=== PATIENT | male | born 1960 | race Caucasian/White ===

== ENCOUNTER 2016-12-09 07:51 | Emergency (ER) | payer MEDICARE, OTHER ==
[~2016-12-09] VITALS: Ht 188 cm; Wt 90.0 kg
[~2016-12-09 07:51] MED LIST: CONGENTIN; HALDOL; LANOXIN; LITHIUM
[2016-12-09 08:00] VITALS: Ht 188 cm; Wt 90.0 kg
[2016-12-09] MEDS ORDERED: SULF1TAB31 PO (08:13)
[2016-12-09] MEDS ORDERED: CEPH-443 PO (08:13)
--- NOTE | 2016-12-09 08:17 | ERD ---
ER Documentation Chief Complaint Date/Time DATE: 12/09/16 TIME: 08:14 Chief Complaint neck possible abcess HPI 56-year-old male comes in with right-sided neck abscess that started approximately a week ago. He states that it started as a small area and has been increasing in size over the last few days. He has localized pain only. He denies any fevers, chills, neck stiffness. No trouble swallowing or voice changes. ROS All systems reviewed and are negative except as per history of present illness. Medications Home Meds Active Scripts Sulfamethoxazole/Trimethoprim* (Bactrim Ds* Tablet) 1 Each Tablet, 1 TAB PO BID , #14 TAB Prov:AMARJIT OSWALD PA-C 12/09/16 Cephalexin* (Keflex*) 500 Mg Capsule, 500 MG PO QID for 7 Days, CAP Prov:AMARJIT OSWALD PA-C 12/09/16 Reported Medications [Lanoxin] No Conflict Check 10/07/11 [Congentin] No Conflict Check 10/07/11 [Kaanapali] No Conflict Check 10/07/11 [Haldol] No Conflict Check 10/07/11 Allergies Allergies: Coded Allergies: No Known Allergy (Unverified , 05/06/14) PMhx/Soc History of Surgery: No Anesthesia Reaction: No Hx Neurological Disorder: Yes (MENTALLY ILL) Hx Respiratory Disorders: No Hx Cardiac Disorders: Yes (HYPERTENSION) Hx Psychiatric Problems: Yes (DEPRESSION) Hx Miscellaneous Medical Probl: No Hx Alcohol Use: Yes (MONDAY NIGHT) Hx Substance Use: No Hx Tobacco Use: Yes (1 PACK A DAY) Physical Exam Vitals Vital Signs Date Time Temp Pulse Resp B/P Pulse Ox O2 Delivery O2 Flow Rate FiO2 12/09/16 08:00 98.2 77 18 152/99 99 Physical Exam General: Well-developed, well-nourished. The patient appears in no acute distress. HEENT: Head is normocephalic, atraumatic. No scleral icterus. Neck: There is a 2 cm area of fluctuance at the right lateral neck. There is pustular discharge that can be seen beneath the skin. There is no surrounding cellulitis. No other masses or swelling noted. Lungs: Clear to auscultation. Normal air movement. Heart: Regular rate and rhythm. S1 and S2 are normal. No murmurs, gallops, or rubs. Abdomen: Nondistended. Extremities: No clubbing or cyanosis. Moving extremities x 4. No weakness. Neurologic: Alert and oriented 3. No focal deficits. Normal speech and gait. Skin: Normal turgor. No rash or lesions. Results 24 hrs Current Medications Medications (Trade) Dose Ordered Sig/David Route PRN Reason Start Time Stop Time Status Last Admin Dose Admin Lidocaine (Xylocaine 1% (Mdv) 20 ml) 20 ml ONCE ONCE SC 12/09/16 08:30 12/09/16 08:31 Procedures/MDM Abscess Incision and Drainage with irrigation by me: Patient was verbally consented Location: Right lateral neck Anesthesia: Local 1% Lidocaine Technique: Irrigated. Disrupted loculations w/ instrumentation Packing: None Complications: Neurovascularly intact post procedure 48 hour wound check. Scar minimization instructions given. Patient's skin symptoms have stabilized while they have been evaluated in the department and are appropriate for outpatient care and work up. Exam and w/u not consistent w/ sepsis, deep space infection, or foreign body. MDM: 56-year-old male comes in with a right lateral neck abscess that was incised and drained without any complications. It is localized infection, superficial. He denies any signs of deep space infection, meningitis, Vasyl's angina, tumors or other masses that could be potentially life-threatening. He will be given Keflex and Bactrim and was asked to recheck the wound in 2 days. Patient's blood pressure was elevated (>120/80) but appears stable without evidence of hypertension emergency or urgency. The patient was counseled about the risks of hypertension and urged to pursue outpatient monitoring and therapy within a week with their primary care physician. Departure Diagnosis: Primary Impression: Abscess Additional Impression: Encounter for incision and drainage procedure Condition: Good Patient Instructions: Abscess, Incision And Drainage Additional Instructions: Follow up in 2 days in your clinic for wound check. AMARJIT OSWALD PA-C December 09, 2016 08:17
[2016-12-09] MEDS ORDERED: LIDOCAINE 1% (MDV) 20 ML INJ SC ONE (08:30)
== END 2016-12-09 08:53 | disposition home or self-care (01) ==
LOC: FTE 07:51
DX: L02.11 Cutaneous abscess of neck (principal); I10 Essential (primary) hypertension; F17.210 Nicotine dependence, cigarettes, uncomplicated

== ENCOUNTER 2017-02-07 05:58 | Emergency (ER) | END 2017-02-07 09:03 | disposition home or self-care (01) | DX: S02.32XA Fracture of orbital floor, left side, initial encounter for closed fracture (principal); S02.92XA Unspecified fracture of facial bones, initial encounter for closed fracture; I10 Essential (primary) hypertension; F17.210 Nicotine dependence, cigarettes, uncomplicated; W01.198A Fall on same level from slipping, tripping and stumbling with subsequent striking against other object, initial encounter; Y92.9 Unspecified place or not applicable ==